=== PATIENT | female | born 1970 ===

== ENCOUNTER 2022-06-17 04:45 | Inpatient (IN) | payer OTHER ==
[~2022-06-17] VITALS: Ht 167.6 cm; Wt 117.9 kg
[~2022-06-17 04:45] MED LIST: ANTIVERT25 M2 PO
== END 2022-06-18 11:58 | disposition home or self-care (01) | DRG 419 ==
LOC: CIR.AMB 04:45 → EDBD 10:15 → CIR.AMB 10:15 → O/R 13:27 → SURG 15:30
PROVIDERS: ADMIT Specialist; ATTEND Specialist
PROC: BF13YZZ Fluoroscopy of Gallbladder and Bile Ducts using Other Contrast (ICD-10-PCS; 2022-06-17)
PROC: 0FT44ZZ Resection of Gallbladder, Percutaneous Endoscopic Approach (ICD-10-PCS; principal; 2022-06-17 11:30)
DX: K80.10 Calculus of gallbladder with chronic cholecystitis without obstruction (principal)